=== PATIENT | female | born 1950 | race Caucasian/White ===

== ENCOUNTER 2019-01-16 10:27 | Outpatient (REF) | payer MEDICARE, BC, SELFPAY ==
[2019-01-16 21:54] LABS: Anion Gap 10.4 mmol/L (3-11); BUN 15 mg/dL (7-18); CO2 25.6 mmol/L (21.0-32.0); CREATININE 0.61 mg/dL (0.55-1.02); Calculated LDL 133 mg/dL; Chloride 106 mmol/L (98-107); Cholesterol 224 mg/dL (50-200); Glucose 97 mg/dL (70-100); HDL Cholesterol 72 mg/dL (40-60); Potassium 4.2 mmol/L (3.5-5.1); Sodium 142 mmol/L (136-145); Triglyceride 95 mg/dL (30-150)
[2019-01-16 22:20] LABS: Vitamin D 25 Total 15.7 ng/ml (30-100)
== END 2019-01-16 10:47 ==
LOC: NCHCN 10:27
PROVIDERS: PCP Internal Medicine; Visit Provider Internal Medicine
DX: R03.0 Elevated blood-pressure reading, without diagnosis of hypertension (principal); E55.9 Vitamin D deficiency, unspecified; E78.89 Other lipoprotein metabolism disorders
CPT/HCPCS: 80048; 80061; 82306; 83721

== ENCOUNTER 2019-06-09 10:28 | Outpatient (REF) | payer MEDICARE, BC, SELFPAY ==
[2019-06-09 21:38] LABS: Abs Immature Grans 0.01 k/cumm (0.0-0.09); Absolute Basophil Count 0.03 k/cumm (0.0-0.2); Absolute Lymphocyte Count 1.51 k/cumm (1.2-3.4); Absolute Monocyte Count 0.41 k/cumm (0.11-0.7); Absolute Neutrophil Count 2.62 k/cumm (1.2-6.7); Basophils % 0.6; Eosinophils % 2.1; HCT 45.4 % (36.0-46.0); HGB 14.6 g/dL (12.0-15.5); Immature Grans % 0.2; Lymphocytes % 32.3; Mean Corp. HGB Concentration 32.2 g/dL (32.0-36.0); Mean Corpuscular Hemoglobin 30.5 pg (27.0-33.0); Mean Platelet Volume 11.6 fL (8.0-11.0); Monocytes % 8.8; Platelet Count 307 x1000/uL (130-400); RBC 4.78 m/cumm (4.00-5.20); RBC Distribution Width 13.6 % (11.7-14.6); White Blood Cell Count 4.68 k/cumm (4.4-10.8)
[2019-06-09 22:28] LABS: C-Reactive Protein < 0.05 mg/dL (0.0-0.3)
== END 2019-06-09 10:48 ==
LOC: NCHCN 10:28
PROVIDERS: PCP Internal Medicine; Visit Provider Internal Medicine
DX: R51 Headache (principal)
CPT/HCPCS: 85652; 85025; 86140

== ENCOUNTER 2020-09-25 18:11 | Outpatient (REF) | payer MEDICARE, BC, SELFPAY ==
[2020-09-27 14:37] LABS: COVID-19 RT-PCR UVMMC Result Negative (Negative)
== END 2020-09-25 18:12 | disposition home or self-care (01) ==
LOC: NCHCN 18:11
PROVIDERS: PCP Internal Medicine; Visit Provider Nurse Practitioner Community Health
DX: Z20.822 Contact with and (suspected) exposure to COVID-19 (principal); R51.9 Headache, unspecified
CPT/HCPCS: U0003; U0005

== ENCOUNTER 2020-12-18 08:04 | Outpatient (REF) | payer MEDICARE, BC, SELFPAY ==
[2020-12-18 13:27] LABS: ALT 26 U/L (14-59); AST 17 U/L (15-37); Albumin 3.7 g/dL (3.4-5.0); Alkaline Phosphatase 88 U/L (46-116); Anion Gap 7.1 mmol/L (3-11); BUN 13 mg/dL (7-18); Bilirubin, Total 0.5 mg/dL (0.2-1.0); CO2 29.9 mmol/L (21.0-32.0); CREATININE 0.6 mg/dL (0.55-1.02); Calculated LDL 111 mg/dL (<100); Chloride 107 mmol/L (98-107); Cholesterol 198 mg/dL (<200); Glucose 91 mg/dL (74-106); HDL Cholesterol 75 mg/dL (40-60); Potassium 4.1 mmol/L (3.5-5.1); Sodium 144 mmol/L (136-145); Total Protein 6.7 g/dL (6.4-8.2); Triglyceride 64 mg/dL (<150)
== END 2020-12-18 08:05 | disposition home or self-care (01) ==
LOC: NCHCN 08:04
PROVIDERS: PCP Internal Medicine; Visit Provider Internal Medicine
DX: R03.0 Elevated blood-pressure reading, without diagnosis of hypertension (principal); E78.89 Other lipoprotein metabolism disorders
CPT/HCPCS: 80053; 80061

== ENCOUNTER 2021-04-14 13:49 | Outpatient (REF) | payer MEDICARE, BC, SELFPAY ==
[2021-04-14 22:56] LABS: Vitamin D 25 Total 28.8 ng/mL (30-100)
== END 2021-04-14 13:50 | disposition home or self-care (01) ==
LOC: NCHCN 13:49
PROVIDERS: PCP Internal Medicine; Visit Provider Internal Medicine
DX: M81.0 Age-related osteoporosis without current pathological fracture (principal)
CPT/HCPCS: 82306

== ENCOUNTER 2021-08-07 18:17 | Outpatient (REF) | payer MEDICARE, BC, SELFPAY ==
[2021-08-07 21:12] LABS: Calcium 9.3 mg/dL (8.5-10.1)
[2021-08-07 21:46] LABS: Vitamin D 25 Total 35.3 ng/mL (30-100)
[2021-08-11 11:25] LABS: Parathyroid Hormone,Intact 64 pg/mL (19-88)
== END 2021-08-07 18:18 | disposition home or self-care (01) ==
LOC: LBN 18:17
PROVIDERS: PCP Internal Medicine; Visit Provider Internal Medicine Endocrinology, Diabetes & Metabolism
DX: M81.0 Age-related osteoporosis without current pathological fracture (principal)
CPT/HCPCS: 82306; 82310; 83970

== ENCOUNTER 2021-09-02 10:13 | Outpatient (REF) | payer MEDICARE, BC, SELFPAY ==
[2021-09-04 12:55] LABS: Creatinine,Urine 46.69 mg/dL
[2021-09-04 12:56] LABS: Creatinine,24hr Ur 0.79 g/24hr (0.60-1.80); Total Volume 1700 ml
[2021-09-05 08:43] LABS: Calcium Urine 24 hr 221 mg/24hrs (100-300); Timed Urine Volume 1700 mL
== END 2021-09-02 10:14 | disposition home or self-care (01) ==
LOC: LBN 10:13
PROVIDERS: PCP Internal Medicine; Visit Provider Internal Medicine Endocrinology, Diabetes & Metabolism
DX: M81.0 Age-related osteoporosis without current pathological fracture (principal)
CPT/HCPCS: 81050; 82340; 82570

== ENCOUNTER 2022-02-03 14:43 | Outpatient (REF) | payer MEDICARE, BC, SELFPAY ==
[2022-02-03 16:07] LABS: Anion Gap 7.7 mmol/L (3-11); BUN 14 mg/dL (7-18); CO2 27.3 mmol/L (21.0-32.0); CREATININE 0.6 mg/dL (0.55-1.02); Calcium 8.9 mg/dL (8.5-10.1); Calculated LDL 116 mg/dL (<100); Chloride 107 mmol/L (98-107); Cholesterol 211 mg/dL (<200); Glucose 89 mg/dL (74-106); HDL Cholesterol 80 mg/dL (40-60); Potassium 3.8 mmol/L (3.5-5.1); Sodium 142 mmol/L (136-145); Triglyceride 79 mg/dL (<150)
== END 2022-02-03 14:44 | disposition home or self-care (01) ==
LOC: NCHCN 14:43
PROVIDERS: PCP Internal Medicine; Visit Provider Internal Medicine
DX: I10 Essential (primary) hypertension (principal); Z13.220 Encounter for screening for lipoid disorders
CPT/HCPCS: 80048; 80061

== ENCOUNTER 2023-03-02 13:08 | Outpatient (REF) | payer MEDICARE, BC, SELFPAY ==
[2023-03-02 18:22] LABS: Anion Gap 6.7 mmol/L (3-11); BUN 15 mg/dL (7-18); CO2 28.3 mmol/L (21.0-32.0); CREATININE 0.7 mg/dL (0.55-1.02); Calcium 8.9 mg/dL (8.5-10.1); Calculated LDL 120 mg/dL (<100); Chloride 105 mmol/L (98-107); Cholesterol 220 mg/dL (<200); Glucose 87 mg/dL (74-106); HDL Cholesterol 77 mg/dL (40-60); Potassium 3.7 mmol/L (3.5-5.1); Sodium 140 mmol/L (136-145); Triglyceride 115 mg/dL (<150)
== END 2023-03-02 13:09 | disposition home or self-care (01) ==
LOC: NCHCN 13:08
PROVIDERS: PCP Internal Medicine; Visit Provider Internal Medicine
DX: I10 Essential (primary) hypertension (principal); Z13.220 Encounter for screening for lipoid disorders
CPT/HCPCS: 80048; 80061

== ENCOUNTER 2024-03-03 18:27 | Outpatient (REF) | payer MEDICARE, BC, SELFPAY ==
[2024-03-03 14:59] LABS: Anion Gap 4.7 mmol/L (3-11); BUN 16 mg/dL (7-18); CO2 31.3 mmol/L (21.0-32.0); CREATININE 0.8 mg/dL (0.55-1.02); Calcium 9.3 mg/dL (8.5-10.1); Calculated LDL 63 mg/dL (<100); Chloride 104 mmol/L (98-107); Cholesterol 159 mg/dL (<200); Estimated GFR 76.79 (mL/min/1.73m2); Glucose 104 mg/dL (74-106); HDL Cholesterol 80 mg/dL (40-60); Potassium 3.7 mmol/L (3.5-5.1); Sodium 140 mmol/L (136-145); Triglyceride 84 mg/dL (<150)
== END 2024-03-03 18:28 | disposition home or self-care (01) ==
LOC: NCHCN 18:27
PROVIDERS: PCP Internal Medicine; Visit Provider Internal Medicine
DX: Z00.00 Encounter for general adult medical examination without abnormal findings (principal)
CPT/HCPCS: 80048; 80061

== ENCOUNTER 2025-01-25 16:56 | Outpatient (REF) | payer MEDICARE, BC, SELFPAY ==
[2025-01-25 21:11] LABS: Abs Immature Grans 0.01 10^3/uL (0.0-0.06); HCT 41.8 % (36.0-46.0); HGB 13.6 g/dL (11.2-15.7); Immature Grans % 0.2 %; MCH 30.6 pg (27.0-33.0); MCHC 32.5 % (32.0-36.0); MCV 94 fL (80-95); MPV 11.8 fL (8.0-11.0); Platelet Count 234 10^3/uL (130-400); RBC 4.44 10^6/uL (3.93-5.22); RDW 13.0 % (11.7-14.6); RDW-SD 44.7 fL; WBC 5.85 10^3/uL (4.4-10.8)
[2025-01-25 21:33] LABS: ALT 26 U/L (14-59); AST 20 U/L (15-37); Albumin 4.0 g/dL (3.4-5.0); Alkaline Phosphatase 66 U/L (46-116); Anion Gap 5.0 mmol/L (3-11); BUN 16 mg/dL (7-18); Bilirubin, Total 0.4 mg/dL (0.2-1.0); CO2 33.0 mmol/L (21.0-32.0); Calcium 9.5 mg/dL (8.5-10.1); Chloride 104 mmol/L (98-107); Estimated GFR 89.58 (mL/min/1.73m2); Glucose 136 mg/dL (74-106); Potassium 3.9 mmol/L (3.5-5.1); Sodium 142 mmol/L (136-145); TSH (W/Ref FT4) 2.28 uIU/mL (0.36-3.74); Total Protein 7.2 g/dL (6.4-8.2)
== END 2025-01-25 16:57 | disposition home or self-care (01) ==
LOC: NCHCN 16:56
PROVIDERS: PCP Internal Medicine; Visit Provider Family Medicine
DX: R42 Dizziness and giddiness (principal)
CPT/HCPCS: 80053; 84443; 85025

== ENCOUNTER 2025-03-28 09:38 | Outpatient (REF) | payer MEDICARE, BC, SELFPAY ==
[2025-03-28 15:57] LABS: Creatinine,Urine 35.60 mg/dL
[2025-03-28 16:06] LABS: Creatinine,24hr Ur 0.71 g/24hr (0.60-1.80); Total Volume 2025 ml
[2025-03-29 10:53] LABS: Calcium Urine 9.6 mg/dL (See Note); Timed Urine Volume 2025 mL
== END 2025-03-28 09:39 | disposition home or self-care (01) ==
LOC: LBN 09:38
PROVIDERS: PCP Internal Medicine; Visit Provider Internal Medicine Endocrinology, Diabetes & Metabolism
DX: M81.0 Age-related osteoporosis without current pathological fracture (principal)
CPT/HCPCS: 81050; 82340; 82570